=== PATIENT | male | born 1950 | race Caucasian/White ===

== ENCOUNTER 2021-06-03 10:57 | Inpatient (IN) | payer MEDICARE, OTHER ==
[~2021-06-03] VITALS: Ht 177.8 cm; Wt 63.0 kg
[2021-06-03] MEDS ORDERED: ZOLPIDEM TARTRATE 5 MG TABLET PO PRN (12:00)
[2021-06-03] MEDS ORDERED: MAG HYDROX/AL HYDROX/SIMETH 30 ML UDC PO PRN (12:00)
[2021-06-03] MEDS ORDERED: MAGNESIUM HYDROXIDE 30 ML UDC PO PRN (12:00)
[2021-06-03] MEDS ORDERED: LORAZEPAM 0.5 MG TABLET PO PRN (12:00)
[2021-06-03] MEDS ORDERED: BLOOD SUGAR DIAGNOSTIC 1 EACH STRIP IN ONE (12:00)
[2021-06-03] MEDS ORDERED: ACETAMINOPHEN 325 MG TABLET PO PRN (12:00)
--- NOTE | 2021-06-03 12:02 | NUR ---
Pt. arrived in the unit via ambulance and transported via a gurney. Dr. Snell made aware of the admission and gave orders.
[2021-06-03 13:00] VITALS: BP 143/94
--- NOTE | 2021-06-03 13:28 | NUR ---
SW Source Admit: Patient was placed on a 5150 hold for GD. Pt brought to [facility] due to pt wandering the streets and stating that he is homeless. Patient reports that he has an apartment and lives at [address] [place] [address]. Pt stated that he has been living here for many years. Pt was unable to give any information to confirm address. Pt reported that he does not have any supportive contact.
--- NOTE | 2021-06-03 13:28 | NUR ---
SUB[facility] Initial Discharge Plan: Patient reports that he has an apartment and lives at [address] [place] [address]. Pt stated that he has been living here for many years. Pt was unable to give any information to confirm address. Pt reported that he does not have any supportive contact. SUBHA will work with the MD and treatment team to help coordinate appropriate discharge.
[2021-06-03 16:00] VITALS: BP 143/94
--- NOTE | 2021-06-03 19:30 | NUR ---
GPS RN NOTE, RECEIVED PATIENT AWAKE AND IN BED, NO S/S OR COMPLAINTS OF PAIN AT THIS TIME. PATIENT IS DISPLAYING NO S/S OF APPARENT DISTRESS AT THIS TIME. PATIENT BREATHING IS UNLABORED WITH EQUAL RISE AND FALL OF THE CHEST. PATIENT IS ALERT AND ORIENTED X 3 ON ROOM AIR WITH A SPO2 95%. PATIENT IS COMPLIANT WITH MEDICATIONS, PARANOID, POLITE, ISOLATIVE, MAKES NEEDS KNOWN, AND COOPERATIVE. PATIENT REFUSED SKIN EXAM AND PHOTOS AT THIS TIME. PATIENT DENIES SUICIDAL AND HOMICIDAL IDEATIONS AT THIS TIME. PATIENT ASSISTED WITH TURNING AND REPOSITIONING Q2HR AND PRN FOR COMFORT AND CIRCULATION. PATIENT HAS NO NEEDS AT THIS TIME. PATIENT EDUCATED ON THE USE OF THE CALL RICHARDS. PATIENT BED SIDE RAILS UP X 2 FOR SAFETY. PATIENT BED IS LOCKED, LOW, WITH BED ALARM ON. WILL CONTINUE TO MONITOR THIS PATIENT Q15 MINUTES WITH THE HELP OF STAFF TO MAINTAIN SAFETY.
[2021-06-03 20:56] VITALS: BP 143/92
[2021-06-04 08:00] VITALS: BP 141/87
[2021-06-04 08:56] LABS: ALBUMIN 2.8 g/dL (3.4-5.0); BILIRUBIN,TOTAL 0.4 mg/dL (0.2-1.0); CALCIUM, SERUM 8.7 mg/dL (8.5-10.1); CREATININE 0.7 mg/dL (0.6-1.3); TOTAL PROTEIN, SERUM 5.7 g/dL (6.4-8.2)
[2021-06-04] MEDS: ENSURE ENLIVE CHOC 237 ML CAN PO SCH ×2 (09:22→17:14)
[2021-06-04 10:02] LABS: CHOLESTEROL 182 mg/dL (<200); HDL CHOLESTEROL 53 mg/dL (40-60); LDL 106 mg/dL (0-99); TRIGLYCERIDES 121 mg/dL (30-150)
[2021-06-04] MEDS: risperiDONE 1 MG TABLET PO SCH ×2 (10:47→16:08)
[2021-06-04 16:00] VITALS: BP 120/68
[2021-06-04 16:16] LABS: BILIRUBIN,URINE NEGATIVE (NEGATIVE); COLOR,URINE YELLOW (YELLOW); LEUKOCYTE ESTERASE ,URINE NEGATIVE (NEGATIVE); NITRITE, URINE NEGATIVE (NEGATIVE); PH,URINE 7.5 (5.0-8.0); PROTEIN,URINE NEGATIVE (NEGATIVE); UGLUCOSE NEGATIVE (NEGATIVE)
[2021-06-04 16:23] LABS: BACTERIA,URINE None seen /HPF (None Seen); SQUAMOUS EPITHELIAL CELL,UR 0-2 /HPF (None Seen); WBC,URINE 0-2 /HPF (0-3)
--- NOTE | 2021-06-04 19:30 | NUR ---
GPS RN NOTE, RECEIVED PATIENT AWAKE AND IN BED, NO S/S OR COMPLAINTS OF PAIN AT THIS TIME. PATIENT IS DISPLAYING NO S/S OF APPARENT DISTRESS AT THIS TIME. PATIENT BREATHING IS UNLABORED WITH EQUAL RISE AND FALL OF THE CHEST. PATIENT IS ALERT AND ORIENTED X 3 ON ROOM AIR WITH A SPO2 95%. PATIENT IS COMPLIANT WITH MEDICATIONS, PARANOID, POLITE, ISOLATIVE, MAKES NEEDS KNOWN, AND COOPERATIVE. PATIENT DENIES SUICIDAL AND HOMICIDAL IDEATIONS AT THIS TIME. PATIENT ASSISTED WITH TURNING AND REPOSITIONING Q2HR AND PRN FOR COMFORT AND CIRCULATION. PATIENT HAS NO NEEDS AT THIS TIME. PATIENT EDUCATED ON THE USE OF THE CALL RICHARDS. PATIENT BED SIDE RAILS UP X 2 FOR SAFETY. PATIENT BED IS LOCKED, LOW, WITH BED ALARM ON. WILL CONTINUE TO MONITOR THIS PATIENT Q15 MINUTES WITH THE HELP OF STAFF TO MAINTAIN SAFETY.
[2021-06-04 20:00] VITALS: BP 115/75
[2021-06-04 21:09] VITALS: BP 115/75
[2021-06-05 08:00] VITALS: BP 124/62
[2021-06-05] MEDS: ENSURE ENLIVE CHOC 237 ML CAN PO SCH ×2 (09:23→17:42)
[2021-06-05] MEDS: risperiDONE 1 MG TABLET PO SCH ×2 (09:24→17:42)
[2021-06-05 16:00] VITALS: BP 126/67
[2021-06-05 20:53] VITALS: BP 124/76
[2021-06-06] MEDS: ENSURE ENLIVE CHOC 237 ML CAN PO SCH ×2 (07:56→17:08)
[2021-06-06 08:00] VITALS: BP 110/78
[2021-06-06] MEDS: risperiDONE 1 MG TABLET PO SCH ×2 (08:11→16:06)
--- NOTE | 2021-06-06 10:02 | NUR ---
SW Note: SW spoke with patient in regards to placement. He stated he would want this SW to find him placement.
--- NOTE | 2021-06-06 13:23 | NUR ---
SUB[facility] Individual Therapy: SW attempted to conduct therapy with pt. Pt was brief and was withdrawn in his room. He was expressing to this SW his feelings and stating that he feels that he is going to "". SW comforted pt and pt felt better afterwards.
[2021-06-06 16:00] VITALS: BP 113/76
[2021-06-06 20:00] VITALS: BP 105/69
[2021-06-07] MEDS: ENSURE ENLIVE CHOC 237 ML CAN PO SCH ×2 (07:48→17:22)
[2021-06-07 08:00] VITALS: BP 121/67
[2021-06-07] MEDS: risperiDONE 1 MG TABLET PO SCH ×2 (08:14→21:03)
--- NOTE | 2021-06-07 08:52 | NUR ---
SNF Referral: SUBHA sent clinicals to Dian from [facility] ([phone]) (F: [phone] placement option. SUBHA sent H & P, progress notes, and medication list. Addendum: 06/07/21 at 0937 by SUBHA MELO SNF Referral: SUBHA sent clinicals to Dian from [facility] ([phone]) (F: [phone]) for placement option. SUBHA sent H & P, progress notes, and medication list.
--- NOTE | 2021-06-07 09:36 | NUR ---
SNF Referral: SW spoke with Dian from [facility] ([phone]) who stated pt is accepted.
[2021-06-07 16:00] VITALS: BP 153/69
[2021-06-07 20:00] VITALS: BP 129/79
[2021-06-08 08:00] VITALS: BP 142/85
[2021-06-08] MEDS: ENSURE ENLIVE CHOC 237 ML CAN PO SCH ×2 (08:43→16:24)
[2021-06-08] MEDS: risperiDONE 1 MG TABLET PO SCH ×2 (08:44→16:30)
--- NOTE | 2021-06-08 11:12 | NUR ---
Court Hearing: Patient's court hearing for 4420 was today and it was upheld for GD.
--- NOTE | 2021-06-08 13:16 | NUR ---
[facility] Individual Therapy: SW attempted to conduct therapy with pt. Pt appeared to be withdrawn and isolative. Pt appeared anxious and was stating that "I am going to go to care home". Pt unable to have a proper conversation at this time.
[2021-06-08 16:00] VITALS: BP 133/75
[2021-06-08 20:00] VITALS: BP 128/75
[2021-06-09 08:00] VITALS: BP 112/75
[2021-06-09] MEDS: risperiDONE 1 MG TABLET PO SCH ×2 (08:08→16:07)
[2021-06-09] MEDS: ENSURE ENLIVE CHOC 237 ML CAN PO SCH ×2 (08:12→17:29)
[2021-06-09 16:00] VITALS: BP 128/77
--- NOTE | 2021-06-09 19:30 | NUR ---
GPS RN NOTE, RECEIVED PATIENT AWAKE AND IN BED, NO S/S OR COMPLAINTS OF PAIN AT THIS TIME. PATIENT IS DISPLAYING NO S/S OF APPARENT DISTRESS AT THIS TIME. PATIENT BREATHING IS UNLABORED WITH EQUAL RISE AND FALL OF THE CHEST. PATIENT IS ALERT AND ORIENTED X 3 ON ROOM AIR WITH A SPO2 99%. PATIENT IS COMPLIANT WITH MEDICATIONS, PARANOID, POLITE, ISOLATIVE, MAKES NEEDS KNOWN, AND COOPERATIVE. PATIENT REFUSED SKIN EXAM AND PHOTOS AT THIS TIME. PATIENT DENIES SUICIDAL AND HOMICIDAL IDEATIONS AT THIS TIME. PATIENT ASSISTED WITH TURNING AND REPOSITIONING Q2HR AND PRN FOR COMFORT AND CIRCULATION. PATIENT HAS NO NEEDS AT THIS TIME. PATIENT EDUCATED ON THE USE OF THE CALL RICHARDS. PATIENT BED SIDE RAILS UP X 2 FOR SAFETY. PATIENT BED IS LOCKED, LOW, WITH BED ALARM ON. WILL CONTINUE TO MONITOR THIS PATIENT Q15 MINUTES WITH THE HELP OF STAFF TO MAINTAIN SAFETY.
[2021-06-09 20:00] VITALS: BP 123/62
[2021-06-10 08:00] VITALS: BP 115/63
[2021-06-10] MEDS: ENSURE ENLIVE CHOC 237 ML CAN PO SCH ×2 (08:00→17:06)
[2021-06-10] MEDS: risperiDONE 1 MG TABLET PO SCH (08:00)
[2021-06-10 16:00] VITALS: BP 125/73
[2021-06-10] MEDS: risperiDONE-M 0.5 MG TAB.RAPDIS PO SCH (16:10)
--- NOTE | 2021-06-10 19:30 | NUR ---
RN OPENING NOTE PATIENT SEEN IN ROOM AWAKE AND WALKING AROUND HIS ROOM. PATIENT DOES NOT COMPLAIN OF ANY PAIN AT THIS TIME. PATIENT IS A/O X 3 AT THIS TIME, ABLE TO MAKE NEEDS KNOWN. CURRENTLY ON RA, TOLERATING WELL, NO SOB NOTED, BREATHING EVEN AND UNLABORED. PATIENT DENIES SI/HI AT THIS TIME. PATIENT OBSERVED TO BE UNKEMPT, ANXIOUS, AND PARANOID. PATIENT ON A 5250 HOLD. PATIENT IS RE-DIRECTABLE. WILL MONITOR PATIENT CLOSELY.
[2021-06-10 20:01] VITALS: BP 110/59
[2021-06-11 08:00] VITALS: BP 127/70
[2021-06-11] MEDS: ENSURE ENLIVE CHOC 237 ML CAN PO SCH ×2 (08:22→17:02)
[2021-06-11] MEDS: risperiDONE-M 0.5 MG TAB.RAPDIS PO SCH ×2 (08:23→16:31)
[2021-06-11 16:00] VITALS: BP 126/77
[2021-06-11 20:05] VITALS: BP 113/66
[2021-06-12 08:00] VITALS: BP 111/57
[2021-06-12] MEDS: ENSURE ENLIVE CHOC 237 ML CAN PO SCH ×2 (08:32→16:10)
[2021-06-12] MEDS: risperiDONE-M 0.5 MG TAB.RAPDIS PO SCH ×2 (09:05→16:22)
[2021-06-12 16:00] VITALS: BP 135/72
[2021-06-12 20:00] VITALS: BP 129/73
[2021-06-12 21:00] VITALS: BP 129/73
--- NOTE | 2021-06-12 22:15 | NUR ---
GPS RN NOTE: REFUSED SKIN ASSESSMENT PATIENT REFUSED WEEKLY SKIN ASSESSMENT X 3 DESPITE OF RISKS AND BENEFITS EXPLANATIONS. PATIENT DOES NOT WANT TO BE BOTHERED AND WANTS TO SLEEP. UNCOOPERATIVE AT THIS TIME.
[2021-06-13 08:00] VITALS: BP 106/77
[2021-06-13] MEDS: risperiDONE-M 0.5 MG TAB.RAPDIS PO SCH ×2 (08:37→17:10)
[2021-06-13] MEDS: ENSURE ENLIVE CHOC 237 ML CAN PO SCH ×2 (08:38→17:13)
[2021-06-13 16:00] VITALS: BP 131/79
[2021-06-13 19:50] VITALS: BP 142/86
[2021-06-13 20:00] VITALS: BP 142/86
[2021-06-14 08:00] VITALS: BP 129/74
[2021-06-14] MEDS: risperiDONE-M 0.5 MG TAB.RAPDIS PO SCH ×2 (08:14→16:06)
[2021-06-14] MEDS: ENSURE ENLIVE CHOC 237 ML CAN PO SCH ×2 (08:26→16:02)
[2021-06-14 16:00] VITALS: BP 100/63
--- NOTE | 2021-06-14 19:50 | NUR ---
PATIENT IN BED AWAKE, ALERT AND ORIENTED X2, FORGETFUL, DISHEVELED, AT ROOM AIR, NO SOB/ACUTE DISTRESS NOTED, NO C/O PAIN OR DISCOMFORT,AND MEDICATIONS, DENIES SI/HI AT THIS TIME,SAFETY PRECAUTIONS MAINTAINED AT ALL TIME, WILL CONTINUE TO MONITOR Q15MIN ROUNDS FOR SAFETY AND BEHAVIOR, NO DISRUPTIVE BEHAVIOR NOTED AT TIS TIME.
[2021-06-14 20:00] VITALS: BP 127/70
--- NOTE | 2021-06-14 20:39 | NUR ---
PATIENT REQUESTING SLEEPING PILL AT THIS TIME, AMBIEN ADMINISTERED ORDERED, WILL CONTINUE TO MONITOR CLOSELY.
[2021-06-15 08:00] VITALS: BP 130/81
[2021-06-15] MEDS: ENSURE ENLIVE CHOC 237 ML CAN PO SCH ×2 (08:38→18:28)
[2021-06-15] MEDS: risperiDONE-M 0.5 MG TAB.RAPDIS PO SCH ×2 (08:38→18:30)
[2021-06-15 16:00] VITALS: BP 143/86
--- NOTE | 2021-06-15 18:00 | NUR ---
med compliant,covid test done and sent to lab.
[2021-06-15 20:00] VITALS: BP 110/61
--- NOTE | 2021-06-16 07:04 | NUR ---
Patient awake, alert and in good mood. Offered to clean patient but refused.
[2021-06-16 08:00] VITALS: BP 124/71
[2021-06-16] MEDS: ENSURE ENLIVE CHOC 237 ML CAN PO SCH (08:07)
--- NOTE | 2021-06-16 08:41 | NUR ---
SW Discharge Note: Patient will be discharged to residential facility, [facility], located at [address] [place] [address] ([phone]) . Please arrange ambulance transportation at 1PM. acoustical material worker spoke with Dian mcnulty ([phone]), who stated patient will be accepted at the facility today. Patient does not have any supportive contact. Patient is alert and oriented x2 and is unable to plan for self-care. Patient denies any suicidal or homicidal ideation. Patient is aware and agreeable with discharge plans. Patient will follow-up at the facility with Dr. Snell (psychiatrist) [id number] [address]; ([phone]) and (Corporate Controller) Dr. Ye [address] [facility] [address], [place] [address]; ([phone]). Patient refused to sign the homeless waiver upon discharge and a copy was placed in the chart. Homeless resources were provided and include [address] information line for shelters and homeless resources. A copy of all resources given to patient was also placed in the chart. Patient presents with euthymic mood and congruent affect.
[2021-06-16] MEDS: risperiDONE-M 0.5 MG TAB.RAPDIS PO SCH (08:42)
--- NOTE | 2021-06-16 09:46 | NUR ---
Dr. Snell gave an order to D/C [facility] and [facility] Psychiatrist ordered to continue same meds including prn and to follow up with psych and medical doctors.
--- NOTE | 2021-06-16 13:34 | NUR ---
RN-DISCHARGE NOTES PATIENT HAD A DISCHARGE FROM DR. CONNELLY,REGULATORY TECHNICIAN SOLITARIO MULLER ALSO MEDICALLY CLEARED PATIENT FOR DISCHARGE. PATIENT LEFT THE UNIT IN STABLE CONDITION A/O X2,FORGETFUL.PATIENT DID NOT VERBALIZE SI/HI,DENIES VISUAL/AUDITORY HALLUCINATIONS AT THE TIME OF DISCHARGE.REPORT WAS GIVEN TO CHING ( FACILITY RN RESIDENTIAL SUBSTANCE ABUSE COUNSELOR).PATIENT WAS DOCUMENTUM CONSULTANT BY AMBULANCE VIA GURNEY WITH TWO STAFF ASSIST , ALL BELONGINGS WAS GIVEN BACK TO THE PATIENT. PATENT REFUSED FULL BODY ASSESSMENT PRIOR TO DISCHARGE. NO FAMILY TO NOTIFY ON THE DISCHARGE.
== END 2021-06-16 13:35 | DRG 885 ==
LOC: GPS 11:17
PROVIDERS: ADMIT Psychiatry & Neurology Psychiatry; ATTEND Registered Nurse
DX: F20.0 Paranoid schizophrenia (principal); E44.0 Moderate protein-calorie malnutrition; Z68.1 Body mass index [BMI] 19.9 or less, adult; E88.09 Other disorders of plasma-protein metabolism, not elsewhere classified; Z91.19 Patient's noncompliance with other medical treatment and regimen; Z73.6 Limitation of activities due to disability; F29 Unspecified psychosis not due to a substance or known physiological condition; Z20.822 Contact with and (suspected) exposure to COVID-19
CPT/HCPCS: 36415; 80053-TC; 80061-TC; 81001; 84443-TC; 87081-TC; 97116-TC; 97530-TC

== ENCOUNTER 2021-08-18 19:36 | Emergency (ER) | payer MEDICARE, OTHER ==
[~2021-08-18] VITALS: Ht 170.2 cm; Wt 58.5 kg
--- NOTE | 2021-08-18 20:40 | NUR ---
BIBPA FROM SNF C/O TESTING COVID + TODAY, WITH N/V. PLACED COMFORTABLY IN RM 6. VITALS CHECKED.
[2021-08-18] MEDS ORDERED: ONDANSETRON HCL/PF 4 MG/2 ML VIAL ONE (21:09)
[2021-08-18] MEDS: IV NS 0.9% 1,000 ML BAG IV ONE (21:21)
--- NOTE | 2021-08-18 21:21 | NUR ---
LFA #20G S/L; PATENT AND INTACT
[2021-08-18 21:22] LABS: BASOPHILS % (AUTO) 0.4 % (0.0-2.0); EOSINOPHILS % (AUTO) 3.5 % (0.0-6.0); HEMATOCRIT 37 % (39-51); HEMOGLOBIN 12.2 g/dL (13.5-17.5); LYMPHOCYTES # (AUTO) 1.1 K/uL (0.8-4.8); MEAN CORPUSCULAR HGB CONC 33 g/dl (31.0-36.0); MEAN CORPUSCULAR VOLUME 87 fL (80-96); MONOCYTES # (AUTO) 0.5 K/uL (0.1-1.30); MONOCYTES % (AUTO) 13.4 % (2.0-12.0); NEUTROPHILS # (AUTO) 2.3 K/uL (1.8-8.9); NEUTROPHILS % (AUTO) 56.7 % (43.0-81.0); PLATELET COUNT (AUTO) 196 K/uL (150-450); RED BLOOD CELL COUNT(AUTO) 4.24 MIL/uL (4.5-6.0); WHITE BLOOD COUNT (AUTO) 4.1 K/uL (4.3-11.0)
[2021-08-18] MEDS: ONDANSETRON HCL/PF 4 MG/2 ML VIAL IVP ONE (21:22)
[2021-08-18 21:48] LABS: ALBUMIN 2.7 g/dL (3.4-5.0); BILIRUBIN,DIRECT 0.1 mg/dL (0.0-0.2); BILIRUBIN,TOTAL 0.3 mg/dL (0.2-1.0); CALCIUM, SERUM 8.1 mg/dL (8.5-10.1); CREATININE 0.8 mg/dL (0.6-1.3); POTASSIUM 3.5 mmol/L (3.5-5.1); TOTAL PROTEIN, SERUM 5.8 g/dL (6.4-8.2)
[2021-08-18] MEDS ORDERED: ONDA4TAB11 PO (22:01)
--- NOTE | 2021-08-18 22:28 | NUR ---
CALLED [facility] FOR BLS ETA [phone]
--- NOTE | 2021-08-18 22:54 | NUR ---
[facility] AT BEDSIDE FOR PATIENT TRANSPORT BACK TO SNF IN STABLE CONDITION.
--- NOTE | 2021-08-18 22:54 | NUR ---
APA AAT BED SIDE TO WORSHIP DIRECTOR THE PT. REPORT GIVEN
--- NOTE | 2021-08-18 23:04 | NUR ---
CALLED MULTIPLE TIMES TO GIVE REPORT TO FACILITY NO ANSWER AND HUNG UP ON ACTIVE CALL.
--- NOTE | 2021-08-18 23:13 | NUR ---
CALLED [facility] SEVERAL TIMES. NOBODY PICKING UP.
--- NOTE | 2021-08-18 23:15 | NUR ---
IV CANNULA REMOVED.
--- NOTE | 2021-08-18 23:22 | NUR ---
PATIENT TRANSFERRED BACK TO FACILITY VIA [facility]. CALLED FACILITY FOR REPORT. NOT ANSWERING.
[2021-08-18 23:30] VITALS: BP 112/60
== END 2021-08-18 23:31 ==
LOC: ER 19:47
DX: R11.2 Nausea with vomiting, unspecified (principal); U07.1 COVID-19; Z79.899 Other long term (current) drug therapy
CPT/HCPCS: 36415; 80048; 80076; 85025; 96361; 96374; 99283; J2405; J7030